=== PATIENT | male | born 1985 | race Caucasian/White ===

== ENCOUNTER 2018-10-25 04:22 | Emergency (ER) | payer OTHER, MEDICAID ==
[~2018-10-25] VITALS: Ht 165.1 cm; Wt 90.7 kg
[2018-10-25 04:33] VITALS: Ht 165.1 cm; Wt 90.7 kg
[2018-10-25 06:13] LABS: BASOPHIL % 0.3 % (0-2); PLATELET COUNT 327 x10^3mcL (130-400); RED CELL DISTRIBUTION WIDTH 14.2 % (11.5-14.5)
[2018-10-25 06:16] LABS: CALCIUM 8.7 mg/dL (8.5-10.1); CARBON DIOXIDE 25.3 mmol/L (21-32); CHLORIDE SERUM 104 mmol/L (98-107); CREATININE SERUM 1.1 mg/dL (0.7-1.3); GFR1 > 60 mL/min; GLUCOSE SERUM 102 mg/dL (74-106); POTASSIUM SERUM 3.6 mmol/L (3.5-5.1); SODIUM SERUM 142 mmol/L (136-145)
[2018-10-25 06:26] LABS: AMPHETAMINE QUAL UR NONE DETECTED (See below)
[2018-10-25 06:29] LABS: ALBUMIN 4.5 g/dL (3.4-5.0); ALKALINE PHOSPHATASE 70 U/L (46-116); ALT/SGPT 63 U/L (16-63); AST/SGOT 27 U/L (15-37); BILIRUBIN TOTAL 0.33 mg/dL (0.20-1.00); FREE T4 1.06 ng/dL (0.76-1.46); TOTAL PROTEIN, SERUM 7.8 g/dL (6.4-8.2)
[2018-10-25 19:58] VITALS: BP 148/92
== END 2018-10-25 20:43 | disposition home or self-care (01) ==
LOC: ED 04:22
PROVIDERS: Emergency Medicine
DX: F31.9 Bipolar disorder, unspecified (principal); F43.10 Post-traumatic stress disorder, unspecified; J45.909 Unspecified asthma, uncomplicated; F10.20 Alcohol dependence, uncomplicated; X58.XXXA Exposure to other specified factors, initial encounter; Y93.9 Activity, unspecified; Y92.89 Other specified places as the place of occurrence of the external cause; Y99.8 Other external cause status
CPT/HCPCS: 36415; 84439; G0480; J3486; J7030